=== PATIENT | male | born 1975 | race African-American/Black ===

== ENCOUNTER 2024-06-23 00:36 | Emergency (ER) | payer OTHER ==
[2024-06-23 01:47] VITALS: BP 129/95; PULSE 82; RESP 18; TEMP 98.1; BMI 29.9
[2024-06-23] MEDS ORDERED: METHOCARBAMOL 500 MG TABLET ONE (03:30)
[2024-06-23] MEDS ORDERED: LIDOCAINE 4% PATCH TP ONE (03:31)
[2024-06-23] MEDS ORDERED: KETOROLAC TROMETHAMINE 30 MG/1 ML VIAL ONE (03:31)
[2024-06-23] MEDS: METHOCARBAMOL 750 MG TABLET PO ONE (03:38)
[2024-06-23] MEDS: KETOROLAC TROMETHAMINE 30 MG/1 ML VIAL IM ONE (03:38)
[2024-06-23] MEDS: LIDOCAINE 4% PATCH TP ONE (03:38)
[2024-06-23] MEDS ORDERED: LIDOCAINE PATCH REMOVAL MC SCH (22:00)
== END 2024-06-23 04:35 | disposition home or self-care (01) ==
LOC: JER 00:36
PROC: 3E0133Z Introduction of Anti-inflammatory into Subcutaneous Tissue, Percutaneous Approach (ICD-10-PCS; principal; 2024-06-23)
DX: M25.512 Pain in left shoulder (principal); M54.2 Cervicalgia; M25.552 Pain in left hip; V49.40XA Driver injured in collision with unspecified motor vehicles in traffic accident, initial encounter
CPT/HCPCS: 99284-25